=== PATIENT | female | born 1990 | race Hispanic/Latino ===

== ENCOUNTER 2020-07-03 16:51 | Day surgery (SDC) | payer OTHER ==
[2020-07-03] MEDS ORDERED: hydrALAZINE 20 MG/ML VIAL SLOW IVP PRN (17:40)
[2020-07-03 20:04] VITALS: BMI 48.6
[2020-07-03] MEDS ORDERED: HumaLOG 300 UNITS/3 ML VIAL SC SCH (20:30)
== END 2020-07-03 21:42 | disposition home or self-care (01) ==
LOC: CSHLD/OP 16:51
PROVIDERS: ATTEND Family Medicine
DX: O99.213 Obesity complicating pregnancy, third trimester (principal); E66.01 Morbid (severe) obesity due to excess calories; O24.113 Pre-existing type 2 diabetes mellitus, in pregnancy, third trimester; E11.9 Type 2 diabetes mellitus without complications; Z79.4 Long term (current) use of insulin; Z3A.34 34 weeks gestation of pregnancy
CPT/HCPCS: 36416; 59025; 76819; 99282

== ENCOUNTER 2020-07-10 17:11 | Day surgery (SDC) | payer OTHER ==
[2020-07-10 17:46] VITALS: BMI 48.9
[2020-07-10] MEDS ORDERED: hydrALAZINE 20 MG/ML VIAL SLOW IVP PRN (18:34)
== END 2020-07-10 21:24 | disposition home or self-care (01) ==
LOC: CSHLD/OP 17:11
PROVIDERS: ATTEND Family Medicine
DX: O24.113 Pre-existing type 2 diabetes mellitus, in pregnancy, third trimester (principal); E11.9 Type 2 diabetes mellitus without complications; Z3A.35 35 weeks gestation of pregnancy; Z79.4 Long term (current) use of insulin
CPT/HCPCS: 76819; 99282